=== PATIENT | male | born 2000 | race Caucasian/White ===

== ENCOUNTER 2022-10-17 09:36 | Outpatient (CLI) | payer BC | END 2022-10-17 09:37 | disposition home or self-care (01) | LOC: CSHRAD 09:36 | PROVIDERS: ATTEND Internal Medicine Rheumatology | DX: M25.511 Pain in right shoulder (principal); M25.562 Pain in left knee ==

== ENCOUNTER 2023-01-03 14:37 | Outpatient (CLI) | payer BC | END 2023-01-03 14:38 | disposition home or self-care (01) | LOC: CSHRAD 14:37 | PROVIDERS: ATTEND Internal Medicine Rheumatology | DX: M46.1 Sacroiliitis, not elsewhere classified (principal) | CPT/HCPCS: 72202 ==